=== PATIENT | male | born 1960 | race Caucasian/White ===

== ENCOUNTER 2021-01-17 14:32 | Observation (INO) ==
[2021-01-17 16:47] LABS: ALT 25 U/L (7-52); AST 26 U/L (13-39); Albumin 4.4 g/dL (3.2-5.2); Alkaline Phosphatase 82 U/L (35-149); Anion Gap 7 mmol/L (2-11); Blood Urea Nitrogen 18 mg/dL (6-24); C Reactive Protein < 1.00 mg/L (<8.01); CO2 Carbon Dioxide 28 mmol/L (22-32); Calcium 9.6 mg/dL (8.6-10.3); Chloride 102 mmol/L (101-111); EGFR African American 73.5 (>60); EGFR Non-African American 60.8 (>60); Globulin 2.2 g/dL (2-4); Glucose 100 mg/dL (70-100); Phosphorus 3.7 mg/dL (2.5-5.0); Sodium 137 mmol/L (135-145); Total Protein 6.6 g/dL (6.4-8.9)
[2021-01-17 17:37] LABS: Folate > 20.00 ng/mL (5.90-24.80)
[2021-01-17 17:38] LABS: Vitamin B12 > 1450 pg/mL (180-914)
[2021-01-17] MEDS ORDERED: PEG 3000 GI LAVAGE 1 GALLON PO ONE (18:00)
[2021-01-17 18:03] LABS: ABS Eosinophils 0.1 10^3/ul (0-0.6); ABS Lymphocytes 1.7 10^3/ul (1.0-4.8); ABS Monocytes 0.4 10^3/ul (0-0.8); ABS Neutrophils 3.6 10^3/ul (1.5-7.7); Eosinophil % 1.1 %; Hematocrit 44 % (42-52); Hemoglobin 15.2 g/dL (14.0-18.0); Lymphocyte % 29.1 %; Mean Corpuscular HGB Conc 35 g/dL (31-36); Mean Corpuscular Hemoglobin 33 pg (27-31); Mean Corpuscular Volume 95 fL (80-94); Mean Platelet Volume 8.3 fL (7.4-10.4); Nucleated Red Blood Cells % 0.2; Platelet Count 221 10^3/uL (150-450); Red Blood Count 4.58 10^6 /uL (4.18-5.48); Red Cell Distribution Width 13 % (10-15); White Blood Count 5.8 10^3/uL (3.5-10.8)
[2021-01-17] MEDS ORDERED: Iohexol 300 (CONTRAST) 10 ML SDV IV ONE (18:22)
[2021-01-17] MEDS ORDERED: Iodixanol (CONTRAST) 320 MG/ML 100 ML SDV IV ONE (19:05)
[2021-01-17] MEDS: D5LR 1000 ml BAG 1,000 ML IV SCH (19:36)
[2021-01-17 19:51] LABS: Urine Appearance Cloudy; Urine Bilirubin Negative (Negative); Urine Blood Negative (Negative); Urine Color Yellow; Urine Glucose Negative (Negative); Urine Ketones 1+ (Negative); Urine Nitrite Negative (Negative); Urine Protein Negative (Negative); Urine Specific Gravity 1.015 (1.002-1.030); Urine Urobilinogen Negative (Negative)
[2021-01-18] MEDS: D5LR 1000 ml BAG 1,000 ML IV SCH ×2 (05:33→19:36)
[2021-01-18] MEDS ORDERED: PEG 3000 GI LAVAGE 1 GALLON PO ONE (06:00)
[2021-01-18 07:59] LABS: Lipase 17 U/L (11.0-82.0)
[2021-01-18 13:03] LABS: Vitamin D Total 25(OH) 76.9 ng/mL (20-50)
[2021-01-18] MEDS ORDERED: Midazolam 10 mg/10 ml VIAL 1 mg/ml 10 ml VIAL (10 mg) ONE (14:16)
[2021-01-18] MEDS ORDERED: fentaNYL 100 mcg/2 ml 50 MCG/ML VIAL ONE (14:17)
[2021-01-18] MEDS ORDERED: TPN 24 HR with D10W 1000 ml BAG 1,000 ML, Amino Acid Infusion 10% 850 ML, Sterile Water... IV SCH (17:00)
[2021-01-19] MEDS: D5LR 1000 ml BAG 1,000 ML IV SCH (05:46)
[2021-01-19 06:58] LABS: INR 1.12 (0.86-1.15)
[2021-01-19 07:53] VITALS: BP 121/76
[2021-01-21 16:27] LABS: Glucoamylase 6.7 (>=8.0); Palatinase 4.8 (>=6.0); Sucrase 15.2 (>=19.0)
[2021-01-23 15:03] LABS: Vitamin E 16.3 mg/L (5.5 - 17.0)
[2021-01-23 15:31] LABS: Vitamin A, S 36.4 mcg/dL (32.5-78.0)
== END 2021-01-19 13:10 | disposition home or self-care (01) ==
LOC: SUATTDRO 15:38 → SSU 15:38 → INTOOBSV 15:38
PROVIDERS: ADMIT Internal Medicine; ATTEND Internal Medicine